=== PATIENT | male | born 1960 | race Caucasian/White ===

== ENCOUNTER 2017-07-05 11:26 | Outpatient (CLI) | payer OTHER | END 2017-07-05 11:27 | disposition home or self-care (01) | LOC: SC 11:26 | PROVIDERS: ATTEND Internal Medicine Pulmonary Disease | DX: G47.30 Sleep apnea, unspecified (principal); R06.83 Snoring | CPT/HCPCS: 99203; 99212 ==

== ENCOUNTER 2017-09-12 19:51 | Outpatient (CLI) | payer OTHER | END 2017-09-12 19:52 | disposition home or self-care (01) | LOC: SC 19:51 | PROVIDERS: ATTEND Internal Medicine Pulmonary Disease | DX: G47.33 Obstructive sleep apnea (adult) (pediatric) (principal) | CPT/HCPCS: 95810 ==

== ENCOUNTER 2017-09-17 11:13 | Emergency (ER) | payer OTHER ==
[2017-09-17] MEDS ORDERED: OSELTAMIVIR 75 MG CAPSULE PO STA (11:55)
[2017-09-17] MEDS ORDERED: ONDANSETRON 4 MG/2 ML VIAL IVP STA (11:55)
[2017-09-17] MEDS ORDERED: SODIUM CHLORIDE 0.9% 1,000 ML IV ONE (11:55)
[2017-09-17] MEDS ORDERED: KETOROLAC 60 MG/2 ML VIAL IVP STA (11:55)
--- NOTE | 2017-09-17 11:56 | ED Physician Documentation ---
History of Present Illness - Stated complaint Stated Complaint: FLU LIKE SYMPTOM/VOMITING - Chief complaint Chief Complaint: Fever - History obtained from History obtained from: Patient, Family () - History of Present Illness Timing: Last night (Sick since last night with body aches, fever, chills, headache, and nausea. No sick contacts. Did get a flu shot last May. He has hypertension but is otherwise healthy.) Review of Systems Constitutional: reports: Fever, Chills, Fatigue Respiratory: reports: Cough GI: reports: Nausea. denies: Vomiting PD PAST MEDICAL HISTORY - Past Medical History Past Medical History: Yes Cardiovascular: Hypertension, High cholesterol GI: GERD - Past Surgical History Past Surgical History: Yes HEENT: Other - Present Medications Home Medications: Ambulatory Orders Medication Instructions Recorded Confirmed Lisinopril [Prinivil] 20 mg PO DAILY 08/01/16 09/17/17 Simvastatin [Zocor] 40 mg PO DAILY 08/01/16 09/17/17 Omeprazole [PriLOSEC] 2 tab PO DAILY 09/17/17 09/17/17 Ondansetron HCl [Zofran] 4 mg PO Q6H PRN #10 tablet 09/17/17 Oseltamivir [Tamiflu] 75 mg PO BID #10 capsule 09/17/17 - Allergies Allergies/Adverse Reactions: Allergies Allergy/AdvReac Type Severity Reaction Status Date / Time No Known Drug Allergies Allergy Verified 09/17/17 11:19 - Social History Does the pt smoke?: No Smoking Status: Never smoker Does the pt drink ETOH?: Yes Does the pt have substance abuse?: No - Immunizations Immunizations are current?: Yes - POLST Patient has POLST: No PD ED PE NORMAL - Vitals Vital signs reviewed: Yes (Tachycardic) - General General: Alert and oriented X 3, No acute distress - HEENT HEENT: PERRL, EOMI, Pharynx benign - Neck Neck: Supple, no meningeal sign, No bony TTP - Cardiac Cardiac: RRR, No murmur - Respiratory Respiratory: No respiratory distress, Clear bilaterally - Abdomen Abdomen: Non tender - Derm Derm: No rash - Neuro Neuro: Alert and oriented X 3, Normal speech - Psych Psych: Normal mood, Normal affect Results - Vitals Vitals: Vital Signs - 24 hr 09/17/17 09/17/17 11:17 14:11 Temperature 37 C 36.8 C Heart Rate 118 H 89 Respiratory 20 18 Rate Blood Pressure 137/83 H 103/56 L O2 Saturation 94 94 Oxygen O2 Source Room air - Labs Labs: Laboratory Tests 09/17/17 09/17/17 09/17/17 11:24 12:04 12:04 WBC 8.1 RBC 5.20 Hgb 15.1 Hct 42.7 MCV 82.2 MCH 29.0 MCHC 35.2 RDW 13.5 Plt Count 153 MPV 7.9 Neut # 6.3 Lymph # 0.9 L [place] # 0.9 Eos # 0.0 Baso # 0.0 Absolute Nucleated RBC 0.00 Nucleated RBC % 0.0 Sodium 131 L Potassium 3.9 Chloride 96 L Carbon Dioxide 21 Anion Gap 14.0 H BUN 13 Creatinine 1.1 Estimated GFR (MDRD) 69 L Glucose 141 H Calcium 8.8 Total Bilirubin 0.9 AST 40 ALT 54 Alkaline Phosphatase 80 Total Protein 7.6 Albumin 4.5 Globulin 3.1 Albumin/Globulin Ratio 1.5 Lipase 32 Influenza A (Rapid) Negative Influenza B (Rapid) POSITIVE H Influenza Types A,B Ag + H PD MEDICAL DECISION MAKING - ED course ED course: 57-year-old gentleman with an acute illness consistent with influenza and found to have influenza B. Feeling much better after IV fluids, Zofran, Tamiflu. Departure - Departure Disposition: 01 Home, Self Care Clinical Impression: Influenza Condition: Good Record reviewed to determine appropriate education?: Yes Instructions: ED Flu, Medication: Tamiflu (Oseltamivir) Prescriptions: Ondansetron HCl [Zofran] 4 mg PO Q6H PRN #10 tablet PRN Reason: Nausea / Vomiting Oseltamivir [Tamiflu] 75 mg PO BID #10 capsule Comments: No patient care until September 22. Push fluids, take ibuprofen 800 mg every 6 hours as needed for aches, pains, fever, headache. Return if worse. Discharge Date/Time: 09/17/17 14:46
[2017-09-17 12:33] LABS: ALBUMIN 4.5 g/dL (3.2-5.5); ALBUMIN/GLOBULIN RATIO 1.5 (1.0-2.2); BILIRUBIN,TOTAL 0.9 mg/dL (0.2-1.0); CALCIUM 8.8 mg/dL (8.5-10.3); CREATININE 1.1 mg/dL (0.6-1.2); TOTAL PROTEIN 7.6 g/dL (6.7-8.2)
[2017-09-17 12:35] LABS: BASOPHILS % (AUTO) 0.2 %; EOSINOPHILS % (AUTO) 0.1 %; HGB - HEMOGLOBIN 15.1 g/dL (14.0-18.0); LYMPHOCYTES # (AUTO) 0.9 10^3/uL (1.5-3.5); MEAN CORPUSCULAR HGB CONC 35.2 g/dL (32.0-36.0); MEAN CORPUSCULAR VOLUME 82.2 fL (80.0-94.0); MEAN PLATELET VOLUME 7.9 fL (7.4-11.4); MONOCYTES # (AUTO) 0.9 10^3/uL (0.0-1.0); MONOCYTES % (AUTO) 10.9 %; NEUTROPHILS # (AUTO) 6.3 10^3/uL (1.5-6.6); NEUTROPHILS % (AUTO) 77.8 %; PLT - PLATELET COUNT 153 10^3/uL (130-450); RED CELL DISTRIBUTION WIDTH 13.5 % (12.0-15.0); WHITE BLOOD COUNT 8.1 x10^3/uL (4.8-10.8)
[2017-09-17] MEDS ORDERED: LACTATED RINGERS 1,000 ML IV STA (12:52)
[2017-09-17 14:12] VITALS: BP 103/56
== END 2017-09-17 14:46 | disposition home or self-care (01) ==
LOC: ED 11:13
DX: J10.1 Influenza due to other identified influenza virus with other respiratory manifestations (principal); I10 Essential (primary) hypertension; E78.00 Pure hypercholesterolemia, unspecified; K21.9 Gastro-esophageal reflux disease without esophagitis
CPT/HCPCS: 36415; 80053; 83690; 85025; 87275; 87276; 96361; 96374; 99283; A9270; J7120

== ENCOUNTER 2017-10-20 11:15 | Outpatient (CLI) | payer OTHER | END 2017-10-20 11:16 | disposition home or self-care (01) | LOC: SC 11:15 | PROVIDERS: ATTEND Nurse Practitioner Family | DX: G47.33 Obstructive sleep apnea (adult) (pediatric) (principal) | CPT/HCPCS: 99212; 99214 ==

== ENCOUNTER 2017-12-15 11:08 | Outpatient (CLI) | payer OTHER | END 2017-12-15 11:09 | disposition home or self-care (01) | LOC: SC 11:08 | PROVIDERS: ATTEND Nurse Practitioner Family | DX: G47.33 Obstructive sleep apnea (adult) (pediatric) (principal) | CPT/HCPCS: 99212; 99214 ==

== ENCOUNTER 2018-02-02 11:11 | Outpatient (CLI) | payer OTHER | END 2018-02-02 11:12 | disposition home or self-care (01) | LOC: SC 11:11 | PROVIDERS: ATTEND Nurse Practitioner Family | DX: G47.33 Obstructive sleep apnea (adult) (pediatric) (principal) | CPT/HCPCS: 99212; 99214 ==

== ENCOUNTER 2018-05-18 10:48 | Outpatient (CLI) | payer OTHER | END 2018-05-18 10:49 | disposition home or self-care (01) | LOC: SC 10:48 | PROVIDERS: ATTEND Nurse Practitioner Family | DX: G47.33 Obstructive sleep apnea (adult) (pediatric) (principal) | CPT/HCPCS: 99212; 99214 ==

== ENCOUNTER 2018-08-24 10:44 | Outpatient (CLI) | payer OTHER | END 2018-08-24 10:45 | disposition home or self-care (01) | LOC: SC 10:44 | PROVIDERS: ATTEND Nurse Practitioner Family | DX: G47.33 Obstructive sleep apnea (adult) (pediatric) (principal) | CPT/HCPCS: 99212; 99214 ==

== ENCOUNTER 2018-10-14 19:30 | Outpatient (CLI) | payer OTHER | END 2018-10-14 23:59 | disposition home or self-care (01) | LOC: SC 19:30 | PROVIDERS: ATTEND Internal Medicine Pulmonary Disease | DX: G47.33 Obstructive sleep apnea (adult) (pediatric) (principal) ==

== ENCOUNTER 2018-12-28 10:36 | Outpatient (CLI) | payer OTHER | END 2018-12-28 10:37 | disposition home or self-care (01) | LOC: SC 10:36 | PROVIDERS: ATTEND Nurse Practitioner Family | DX: G47.33 Obstructive sleep apnea (adult) (pediatric) (principal) | CPT/HCPCS: 99212; 99214 ==

== ENCOUNTER 2021-11-18 06:21 | Day surgery (SDC) | payer OTHER ==
[2021-11-18] MEDS ORDERED: LACTATED RINGERS 1,000 ML IV ONE ×2 (06:35→07:54)
--- NOTE | 2021-11-18 07:04 | ANESTHESIA ---
Pre-Anesthesia VS, & Labs - Diagnosis screening - Procedure colonoscopy Vital Signs: Temp Pulse Resp BP Pulse Ox 36.0 C L 74 18 159/99 H 100 11/18/21 06:35 11/18/21 06:35 11/18/21 06:35 11/18/21 06:35 11/18/21 06:35 Height: 5 ft 11 in Weight (kg): 90.3 kg Body Mass Index: 27.7 BMI Classification: Overweight - NPO Other (prep finished at 530) Home Medications and Allergies Simvastatin [Zocor] 40 mg PO DAILY 08/01/16 lisinopriL [Prinivil] 20 mg PO DAILY 08/01/16 Omeprazole [PriLOSEC] 2 tab PO DAILY 09/17/17 Allergies/Adverse Reactions: Allergies Allergy/AdvReac Type Severity Reaction Status Date / Time No Known Drug Allergies Allergy Verified 09/17/17 11:19 Anes History & Medical History - Anesthetic History Anesthesia Complications: reports: No previous complications - Medical History Cardiovascular: reports: Hypertension, High cholesterol Pulmonary: reports: Sleep apnea, Other Gastrointestinal: reports: GERD Skin: reports: Other Smoking Status: Never smoker History of Cancer?: Yes - Surgical History General: reports: Colonoscopy Eyes Ears Nose Throat (EENT): reports: Other Dermatologic: reports: Skin cancer surgery Exam General: Alert, Oriented x3 Dental: WNL Mouth Opening: Greater than 4 Fingerbreadths Mallampati classification: II Thyromental Distance: greater than 6 cm Respiratory: Lungs clear Cardiovascular: Regular rate, Normal S1, Normal S2 Plan Anesthesia Type: Total IV Consent for Procedure(s) Verified and Reviewed: Yes Code Status: Attempt Resuscitation ASA classification: 2-Mild systemic disease Is this case an emergency?: No
[2021-11-18] MEDS ORDERED: MIDAZOLAM 2 MG/2 ML VIAL ONE (07:15)
[2021-11-18] MEDS ORDERED: fentaNYL 100 MCG/2 ML VIAL ONE (07:15)
[2021-11-18] MEDS ORDERED: PROPOFOL 500 MG/50 ML 500 MG/50 ML VIAL ONE (07:17)
[2021-11-18 08:41] VITALS: BP 132/68
--- NOTE | 2021-11-18 09:00 | ANESTHESIA POST OP EVALUATION ---
Anesthesia Post Eval - Post Anesthesia Eval Vitals: Last Vital Signs Temp 36.2 C L 11/18/21 08:25 Pulse 77 11/18/21 08:25 Resp 15 11/18/21 08:25 BP 132/68 H 11/18/21 08:25 Pulse Ox 100 11/18/21 08:25 CV Function Including HR & BP: Stable Pain Control: Satisfactory Nausea & Vomiting: Negative Mental Status: Baseline Respiratory Status: Airway Patent Hydration Status: Satisfactory Anesthesia Complications: None
== END 2021-11-18 06:22 | disposition home or self-care (01) ==
LOC: SDS 06:21
PROVIDERS: ATTEND Surgery
PROC: 0DBP8ZZ Excision of Rectum, Via Natural or Artificial Opening Endoscopic (ICD-10-PCS; principal; 2021-11-18 07:30)
DX: Z12.11 Encounter for screening for malignant neoplasm of colon (principal); K64.8 Other hemorrhoids; K62.1 Rectal polyp; G47.33 Obstructive sleep apnea (adult) (pediatric)
CPT/HCPCS: 45380; J7120

== ENCOUNTER 2023-01-27 14:44 | Outpatient (CLI) | payer OTHER ==
--- NOTE | 2023-01-27 15:19 | SLEEP CARE CONSULTATION ---
Information from patient questionnaire entered by Lilibeth Hassan. I have reviewed and concur with the information entered by Lilibeth Hassan. This document represents the service I personally performed and the decisions made by me, Denise Garcia ARNP. History of Present Illness Service Date and Time: 01/27/2023 1444 Reason for Visit: New patient, Previously diagnosed sleep apnea, Re-establish care (Last seen 2018, wants new dental appliance) Chief Complaint: reports: Insomnia, Snoring Date of Onset: years Usual bedtime: 9-10 PM Time it takes to fall asleep: 15 minutes Snores at night: Yes Observed to quit breathing while asleep: Yes Sleeps alone due to snoring: Yes Number of times waking at night: 2 times Reasons for waking at night: reports: Other (unknown reasons) Toss, Turn, or Twitch while sleeping: Yes Recalls having dreams: Yes Usually gets out of bed at: 4 AM Feels refreshed in the morning: No Morning headache: No Sleepy or fatigued during the day: Yes Ever fallen asleep while driving: No Takes day naps: No Prior sleep studies: Yes Year and Where: 2018 [facility] Type of Sleep Study: Polysomnography Additional HPI information: [place] was previously diagnosed to have mild, AHI 10.8, obstructive sleep apnea-hypopnea syndrome as seen in PSG dated 09/23/2017 here at [facility] and comes in today to re-establish care for oral appliance therapy. His oral device broke about 2 months ago and he needs a new one made. - Parasomnia Symptoms Ever been unable to move upon waking from sleep: No Walks in sleep: No Talks in sleep: No Ever acted out dreams in sleep: No Ever felt weak in the knees when startled or emotional: No Bothered by creepy, crawly, restless sensations in legs: No Problems with memory or concentration: No CPAP Compliance Data Compliance data discussion: He gets good improvement with his oral appliance but it broke about 2 months ago. He has been trying to sleep on his sides more since he cannot use his oral appliance. 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 Patient is and lives in [place]. Have you smoked in the past 12 months: No Alcohol use: Yes Alcohol amount and frequency: 1 drink daily Caffeine use: Yes Caffeine amount and frequency: 1-2 cups every morning Family History Family history of sleep disordered breathing: Yes Family Hx Sleep Apnea: Mother: Sleep apnea - Untreated, Sibling: Sleep apnea - Treated Allergies and Home Medications Known drug allergies: No Drug allergies reviewed: Yes Home medication list reviewed: Yes Allergy and home medication list: Allergies No Known Drug Allergies Allergy Medications: Lisinopril Omeprazole Simvastatin Aspirin Review of Systems Cardiovascular: reports: high blood pressure Gastrointestinal: reports: heartburn Neurological: denies: headaches Psychiatric: denies: anxiety, depression Ear/Nose/Throat: reports: tonsillectomy Endocrine: denies: thyroid disease Immunologic: denies: allergies to food or environment Physical Exam Vital signs obtained and entered by: Denise Jenkins NP Blood Pressure: 120/73 Cuff size: wrist (right) Heart Rate: 66 O2 Saturation: 94 Height: 5 ft 11 in Weight: 208 lb 6.4 oz Body Mass Index: 29.0 BMI Classification: Overweight Heart: regular rate and rhythm Lungs: clear bilaterally Impression and Plan 1. Obstructive Sleep Apnea-Hypopnea Syndrome, mild. Patient has been using an oral appliance to treat their apnea. Using an oral appliance, the patient has better sleep quality and is more rested overall. His oral appliance broke about 2 months ago and he is in need of a new one. Alphonse has already got authorization for the oral appliance and has already been seen by Dr. Chase. He should have his new appliance in about 3 weeks. Once he has been using the device another polysomnography will be ordered with use of the oral appliance to check efficacy in reducing apnea. Until patient is able to use the oral appliance, positional therapy is advised to avoid supine sleep with pillow positioning or one of the commercial products because apnea is more severe supine. Patient's apnea severity and rationale for treatment to reduce apnea, improve sleep quality and reduce cardiovascular and cerebrovascular events was reviewed. 2. Overweight, unspecified. Currently patients BMI is 29. Obesity increases the risk of apnea, CPAP pressure requirements and overall health risks especially cardiovascular and diabetes. -Continue Oral appliance -Obtain new oral device, as already in process -Return for follow up HST to check oral device efficacy -Attempt to lose weight -Call this office if any problems -Return for follow up after using oral appliance for about a month, or sooner if concerns arise Counseling Topics: Sleeping position, Weight loss health impact Visit Type: In Office Time Spent with Patient (minutes): 23 Provider Statement: I spent 100% of the Face to Face Visit with the patient with greater than 50% spent counseling the patient and coordination of care.
[2023-01-27 15:20] VITALS: BP 120/73
== END 2023-01-27 14:45 | disposition home or self-care (01) ==
LOC: SC 14:44
PROVIDERS: ATTEND Nurse Practitioner Family
DX: G47.33 Obstructive sleep apnea (adult) (pediatric) (principal); E66.3 Overweight; Z68.29 Body mass index [BMI] 29.0-29.9, adult
CPT/HCPCS: 99202; 99212